=== PATIENT | female | born 1955 | race Caucasian/White ===

== ENCOUNTER 2017-09-17 07:20 | Day surgery (SDC) | payer BC ==
[2017-09-10 11:41] VITALS: BMI 20.7
[2017-09-17] MEDS ORDERED: LIDOCAINE HCL/PF 2% SDV 5ML VIAL ONE (07:40)
[2017-09-17] MEDS ORDERED: PROPOFOL 20 ML ONE ×2 (07:40)
[2017-09-17 09:03] VITALS: TEMP 98.2
[2017-09-17 09:27] VITALS: BP 122/78; PULSE 58
== END 2017-09-17 09:40 | disposition home or self-care (01) ==
LOC: FASU-ENDO 07:20
PROVIDERS: ATTEND Internal Medicine Gastroenterology
PROC: 0DJD8ZZ Inspection of Lower Intestinal Tract, Via Natural or Artificial Opening Endoscopic (ICD-10-PCS; principal; 2017-09-17 08:27)
DX: Z12.11 Encounter for screening for malignant neoplasm of colon (principal); Z80.0 Family history of malignant neoplasm of digestive organs; K57.30 Diverticulosis of large intestine without perforation or abscess without bleeding

== ENCOUNTER 2020-01-24 17:31 | Emergency (ER) | payer OTHER | END 2020-01-24 17:59 | disposition home or self-care (01) | LOC: JVIRT 17:31 | DX: Z11.59 Encounter for screening for other viral diseases (principal) | CPT/HCPCS: C9803; Q3014-GT; U0003 ==